=== PATIENT | male | born 1940 | race Caucasian/White ===

== ENCOUNTER 2022-12-12 09:08 | Outpatient (CLI) | payer MEDICARE, BC | END 2022-12-12 09:09 | disposition home or self-care (01) | LOC: CSHWCC 09:08 | PROVIDERS: ATTEND Nurse Practitioner Family | DX: R60.0 Localized edema (principal); E11.621 Type 2 diabetes mellitus with foot ulcer; L97.525 Non-pressure chronic ulcer of other part of left foot with muscle involvement without evidence of necrosis; L97.415 Non-pressure chronic ulcer of right heel and midfoot with muscle involvement without evidence of necrosis | CPT/HCPCS: 87070; 87077; 87186; 87205; 97139; G0463; 36415; 83036; 85025; 86140; 99205 ==